=== PATIENT | male | born 1960 | race Caucasian/White ===

== ENCOUNTER 2016-03-02 09:53 | Inpatient (IN) | payer BC ==
[~2016-03-02] VITALS: Ht 182.9 cm; Wt 102.5 kg
[2016-03-02] VITALS (8 sets, daily range): BP systolic 108–152; BP diastolic 70–86; PULSE 103–129; RESP 18–20; TEMP 98.1–102.3; O2SAT 90–98
[~2016-03-02 09:53] MED LIST: FAMO40TA PO
[2016-03-02] MEDS ORDERED: FAMO40TA PO (10:23)
[2016-03-02] MEDS ORDERED: PIPERACIL-TAZO 4.5 GM PREMIX 100 ML IV STA (10:32)
[2016-03-02] MEDS ORDERED: SODIUM CHLOR 0.9% 1000 ML INJ 1,000 ML IV ONE ×3 (10:32)
--- NOTE | 2016-03-02 10:38 | PD ---
HPI Chief Complaint: Abdominal Pain Time Seen by Provider: 10:22 Travel History International Travel<30 days: No Contact w/Intl Traveler<30days: No Traveled to known affect area: No History of Present Illness HPI 55yo M with no significant PMH presents to the ED with c/o fever, abdominal pain , abdominal distension for 3 days. Last took acetaminophen at 9am. Pt had BM 3 days ago and it was hard. Denies any throat pain, rhinorrhea, chest pain, sob , cough, n/v, urinary complaints, weakness or numbness. Denies chronic alcohol use. Never had similar pain or abdominal surgery. PFSH Past Medical History High Cholesterol: Yes Diminished Hearing: No Gastrointestinal Disorders: Yes (GERD) GERD: Yes Hypertension: Yes Immunizations Current: No Past Surgical History Abdominal Surgery: Yes (LEFT AND RIGHT HERNIA REPAIR) AICD: No Joint Replacement: No Pacemaker: No Other Surgery: Yes (ROTATOR CUFF) Social History Alcohol Use: Yes (SOCIALLY) Tobacco Use: Yes (/2 PPD) Substance Use: No Allergies-Medications (Allergen,Severity, Reaction): Coded Allergies: No Known Allergies (Verified , 03/02/16) Reported Meds & Prescriptions Reported Meds & Active Scripts Active Reported Famotidine 40 Mg Tab 40 Mg PO DAILY Review of Systems Except as stated in HPI: all other systems reviewed are Neg Physical Exam Narrative GENERAL: 55yo M in moderate distress. SKIN: Warm and dry. HEAD: Atraumatic. Normocephalic. NECK: Trachea midline. No JVD. CARDIOVASCULAR: Tachycardic. RESPIRATORY: No accessory muscle use. Clear to auscultation. Breath sounds equal bilaterally. GASTROINTESTINAL: Abdomen soft, distended. +TTP epigastric, RUQ, RLQ. Mild guarding in epigastric region. No rebound tenderness. : No testicular ttp. No penile discharge or rash. No inguinal hernia palpated. MUSCULOSKELETAL: No obvious deformities. No clubbing. No cyanosis. No edema. NEUROLOGICAL: Awake and alert. No obvious cranial nerve deficits. Motor grossly within normal limits. Normal speech. PSYCHIATRIC: Appropriate mood and affect; insight and judgment normal. Data Data Last Documented VS Vital Signs Date Time Temp Pulse Resp B/P Pulse Ox O2 Delivery O2 Flow Rate FiO2 03/02/16 13:24 98.7 103 20 113/70 97 Nasal Cannula 2 Orders Electrocardiogram (03/02/16 10:32) Complete Blood Count With Diff (03/02/16 10:32) Prothrombin Time / Inr (Pt) (03/02/16 10:32) Act Partial Throm Time (Ptt) (03/02/16 10:32) Lactic Acid Sepsis Protocol (03/02/16 10:32) Lipase (03/02/16 10:32) Urinalysis - C+S If Indicated (03/02/16 10:32) Influenzae A/B Antigen (03/02/16 10:32) Blood Culture (03/02/16 10:32) Chest, Single Ap (03/02/16 10:32) Ecg Monitoring (03/02/16 10:32) Iv Access Insert/Monitor (03/02/16 10:32) Oximetry (03/02/16 10:32) Ibuprofen (Motrin) (03/02/16 10:45) Morphine Inj (Morphine Inj) (03/02/16 10:45) Ct Abd/Pel W Iv Contrast(Rout) (03/02/16 10:32) Piperacil-Tazo 4.5 Gm Premix (Zosyn 4.5 (03/02/16 10:32) Sodium Chlor 0.9% 1000 Ml Inj (Ns 1000 M (03/02/16 10:32) Sodium Chlor 0.9% 1000 Ml Inj (Ns 1000 M (03/02/16 10:32) Sodium Chlor 0.9% 1000 Ml Inj (Ns 1000 M (03/02/16 10:32) Basic Metabolic Panel (Bmp) (03/02/16 10:38) Hepatic Functional Panel (03/02/16 10:38) Potassium Chloride (Kcl) (03/02/16 12:00) Troponin I (03/02/16 12:30) Iohexol 350 Inj (Omnipaque 350 Inj) (03/02/16 12:44) Admit Order (Ed Use Only) (03/02/16 13:44) Labs Laboratory Tests Test 03/02/16 03/02/16 10:35 10:40 White Blood Count 10.1 TH/MM3 Red Blood Count 5.27 MIL/MM3 Hemoglobin 14.8 GM/DL Hematocrit 44.9 % Mean Corpuscular Volume 85.2 FL Mean Corpuscular Hemoglobin 28.0 PG Mean Corpuscular Hemoglobin 32.9 % Concent Red Cell Distribution Width 14.0 % Platelet Count 164 TH/MM3 Mean Platelet Volume 8.6 FL Neutrophils (%) (Auto) 89.0 % Lymphocytes (%) (Auto) 4.9 % Monocytes (%) (Auto) 5.2 % Eosinophils (%) (Auto) 0.1 % Basophils (%) (Auto) 0.8 % Neutrophils # (Auto) 9.0 TH/MM3 Lymphocytes # (Auto) 0.5 TH/MM3 Monocytes # (Auto) 0.5 TH/MM3 Eosinophils # (Auto) 0.0 TH/MM3 Basophils # (Auto) 0.1 TH/MM3 CBC Comment DIFF FINAL Differential Comment Prothrombin Time 11.3 SEC Prothromb Time International 1.0 RATIO Ratio Activated Partial 51.6 SEC Thromboplast Time Sodium Level 136 MEQ/L Potassium Level 3.0 MEQ/L Chloride Level 93 MEQ/L Carbon Dioxide Level 33.6 MEQ/L Anion Gap 9 MEQ/L Blood Urea Nitrogen 18 MG/DL Creatinine 1.30 MG/DL Estimat Glomerular Filtration 57 ML/MIN Rate Random Glucose 147 MG/DL Calcium Level 8.6 MG/DL Total Bilirubin 0.7 MG/DL Direct Bilirubin 0.2 MG/DL Indirect Bilirubin 0.5 MG/DL Aspartate Amino Transf 8 U/L (AST/SGOT) Alanine Aminotransferase 24 U/L (ALT/SGPT) Alkaline Phosphatase 76 U/L Troponin I 0.03 NG/ML Total Protein 7.0 GM/DL Albumin 2.9 GM/DL Lipase 44 U/L Lactic Acid Level 2.8 mmol/L MDM Medical Decision Making Medical Screen Exam Complete: Yes Emergency Medical Condition: Yes Interpretation(s) EKG: Sinus tachycardia at 120bpm. LAD. ST depression I. TWI aVL. Q waves III , aVF. Differential Diagnosis Acute cholangitis vs. pancreatitis vs. colitis Narrative Course 55yo M with abdominal pain, distension and fever for 3 days. Pt meets SIRS criteria with tachycardia of 129bpm and fever of 102.3F. Pt given ibuprofen for fever. Empirically treated with IV zosyn and NS IVF x3. Labs reviewed, no leukocytosis but 89% neutrophil. Lactic acid elevated at 2.8. K is low at 3.0 , orally replaced. PTT is elevated at 51.6sec. CXR showed minimal bibasilar air space disease. CXR showed under aerated lungs with minimal bibasilar air space disease. CTa/p showed diffuse thickening of stomach, cannot rule out infiltrating neoplastic process. Pt's abdominal pain improved with morphine. Discussed with Dr. Armendariz and accepted for admission for sepsis. Alie Raman DO Mar 02, 2016 10:38
[2016-03-02] MEDS ORDERED: IBUPROFEN 600 MG TAB PO ONE (10:45)
[2016-03-02] MEDS ORDERED: MORPHINE SULFATE 8 MG/ML INJ IV PUSH ONE (10:45)
[2016-03-02 10:56] LABS: BASOPHIL # 0.1 TH/MM3 (0-0.2); BASOPHIL % 0.8 % (0.0-2.0); EOSINOPHIL % 0.1 % (0.0-4.0); HEMATOCRIT 44.9 % (39.0-51.0); LYMPH % 4.9 % (9.0-44.0); LYMPHOCYTE # 0.5 TH/MM3 (1.0-4.8); MEAN CELL VOLUME 85.2 FL (80.0-100.0); MEAN CORPUSCULAR HGB CONC 32.9 % (32.0-36.0); MONO % 5.2 % (0.0-8.0); PLATELET COUNT 164 TH/MM3 (150-450); RED BLOOD COUNT 5.27 MIL/MM3 (4.50-5.90); WHITE BLOOD COUNT 10.1 TH/MM3 (4.0-11.0)
[2016-03-02 11:00] LABS: HEMO FLAGS DIFF FINAL
[2016-03-02 11:15] LABS: BICARBONATE 33.6 MEQ/L (21.0-32.0)
[2016-03-02 11:20] LABS: INDIRECT BILIRUBIN 0.5 MG/DL (0.0-0.8); TOTAL BILIRUBIN ADULT 0.7 MG/DL (0.2-1.0)
[2016-03-02 11:22] LABS: APTT (PATIENT) 51.6 SEC (24.3-30.1); PROTHROMBIN TIME - PATIENT 11.3 SEC (9.8-11.6)
--- NOTE | 2016-03-02 11:41 | RADHPO ---
EXAM DATE/TIME: 03/02/2016 11:06 [facility] COMPARISON: No previous studies available for comparison. INDICATIONS: Stomach pain, fever. MEDICAL HISTORY: None. SURGICAL HISTORY: None. ENCOUNTER: Initial ACUITY: 4 - 6 days PAIN SCORE: 3/10 LOCATION: Bilateral chest FINDINGS: The lungs are under aerated with minimal bibasilar air space disease evident worse on the right than the left. Heart and pulmonary vascularity are normal. Portion of bony skeleton visualized unremarka ble. CONCLUSION: Under aerate with minimal bibasilar air space disease. No significant findings in the right base. Peter Hinojosa MD FACR on March 02, 2016 at 11:26 Board Certified Radiologist. This report was verified electronically.
[2016-03-02] MEDS ORDERED: POTASSIUM CHLORIDE 20 MEQ CONTROLLED RELEASE TAB PO ONE (12:00)
[2016-03-02] MEDS ORDERED: IOHEXOL 350 MG/ML 10 ML VIAL (for RAD DIAG) IV ONE (12:44)
[2016-03-02 12:49] LABS: LACTIC ACID GHOST NOT REPORTABLE
--- NOTE | 2016-03-02 12:59 | RADHPO ---
EXAM DATE/TIME: 03/02/2016 12:32 [facility] COMPARISON: No previous studies available for comparison. INDICATIONS : Mid abdominal pain and distention. IV CONTRAST: 95 cc Omnipaque 350 (iohexol) IV ORAL CONTRAST: No oral contrast ingested. RADIATION DOSE: 21.60 CTDIvol (mGy) MEDICAL HISTORY : Hypercholesterolemia. Hypertension. Gastroesophageal reflux disease. SURGICAL HISTORY : Hernia repair. Orthopedic surgery. ENCOUNTER: Initial ACUITY: 3 days PAIN SCALE: 5/10 LOCATION: abdomen/pelvis TECHNIQUE: Volumetric scanning of the abdomen and pelvis was performed. Using automated exposure control and ad justment of the mA and/or kV according to patient size, radiation dose was kept as low as reasonably achievable to obtain optimal diagnostic quality images. FINDINGS: There are atelectatic changes in both lung bases. There is a small pericardial effusion. There is diffuse thickening of the stomach. There is no focal mass seen this would raise concern for possible gastritis. An infiltrating neoplastic process is not excluded. The appearance of the liver, spleen, pancreas, adrenal glands and left kidney is within normal limits . Examination of the right kidney demonstrates a 1.2 x 1.6 cm low-density lesion projecting off the l ower pole this is most compatible with a simple cyst. There is no free intraperitoneal air. No free intraperitoneal fluid is identified. There is no retrop eritoneal lymphadenopathy. The aorta is normal in caliber. The visualized loops of small and large bowel are unremarkable. No free air or free fluid is seen. There is no free fluid within the pelvis. No iliac or inguinal adenopathy is present. The visualized loops of small and large bowel within the pelvis are unremarkable. Note is made of a small left ingui nal hernia. The visualized bony structures demonstrate mild degenerative changes but are otherwise intact. CONCLUSION: 1. There appears to be diffuse thickening of the stomach there is no focal mass seen but this would r aise concern for possible gastritis. Followup to ensure this resolved would be warranted. An infiltra ting neoplastic process is not excluded. 2. No findings to indicate bowel obstruction identified. No free air free fluid is present. 3. Incidental 1.6 x 1.2 cm cyst projecting off of the right kidney. 4. Note is made of a small left inguinal hernia. 5. Note is made of a small pericardial effusion. Zane Hinojosa MD on March 02, 2016 at 12:53 Board Certified Radiologist. This report was verified electronically.
[2016-03-02 13:57] LABS: BLOOD, URINE TRACE (NEG); GLUCOSE,URINE NEG (NEG); KETONE, URINE NEG (NEG); NITRITE,URINE NEG (NEG); PH, URINE 6.5 (5.0-8.5)
[2016-03-02 14:11] LABS: COMMENT (UR) CULT NOT INDICATED; CULTURE IF INDICATED CULT NOT INDICATED; METHOD OF COLLECTION CLEAN CATCH; SQUAMOUS EPITHELIAL CELL URINE 0-5 /hpf (0-5); URINE COLOR YELLOW (YELLW/STRAW); WBC, URINE 0-2 /hpf (0-5)
[2016-03-02] MEDS ORDERED: ONDANSETRON HCL 4 MG/2 ML VIAL IV PUSH PRN (16:00)
[2016-03-02] MEDS: PANTOPRAZOLE SODIUM 40 MG VIAL IV PUSH SCH (17:00)
[2016-03-02] MEDS: DEXT 5%-NACL 0.45% 1000 ML INJ 1,000 ML IV SCH (17:00)
[2016-03-02] MEDS: PIPERACIL-TAZO 3.375 GM PREMIX 50 ML IV SCH ×2 (17:29→22:49)
[2016-03-02] MEDS: MORPHINE SULFATE 4 MG/ML INJ IV PUSH PRN (20:32)
[2016-03-03] VITALS (7 sets, daily range): BP systolic 136–185; BP diastolic 93–114; PULSE 98–117; RESP 18–20; TEMP 98.1–101.7; O2SAT 91–94
[2016-03-03] MEDS: MORPHINE SULFATE 4 MG/ML INJ IV PUSH PRN ×4 (04:24→17:15)
[2016-03-03] MEDS: PIPERACIL-TAZO 3.375 GM PREMIX 50 ML IV SCH ×4 (04:25→22:32)
--- NOTE | 2016-03-03 06:52 | HHI.PR ---
Subjective History of Present Illness Patient feel better abdominal pain better d/w AUSTIN Norris at bed side. no acute issue. Review of Systems GI/Abdomen GI/Abdominal Exam: Abdominal Pain Vitals/Results Intake & Output 03/02/16 03/02/16 03/03/16 15:00 23:00 07:00 Intake Total 0 ml 1000 ml Output Total 150 ml 325 ml Balance -150 ml 675 ml Intake Oral 0 ml 0 ml IV Total 1000 ml Output Urine Total 150 ml 325 ml # Voids 1 2 # Bowel Movements 0 Vital Signs Vital Signs Date Time Temp Pulse Resp B/P Pulse Ox O2 Delivery O2 Flow Rate FiO2 03/03/16 04:00 101.3 117 20 153/101 94 03/03/16 00:00 100.6 117 20 136/93 93 03/02/16 20:01 113 03/02/16 20:00 101.3 120 20 140/86 94 03/02/16 16:00 98.1 108 18 122/82 98 03/02/16 14:14 104 20 114/79 94 03/02/16 13:24 98.7 103 20 113/70 97 Nasal Cannula 2 03/02/16 12:08 99.0 114 20 108/74 98 Nasal Cannula 2 03/02/16 11:02 90 Room Air 03/02/16 11:02 101.4 119 20 149/75 94 Nasal Cannula 2 03/02/16 09:56 102.3 129 18 152/86 93 CBC/BMP: 03/02/16 1035 03/02/16 1035 Lab Results Laboratory Tests Test 03/02/16 03/02/16 03/02/16 03/02/16 10:35 10:40 13:25 13:40 White Blood Count 10.1 TH/MM3 Red Blood Count 5.27 MIL/MM3 Hemoglobin 14.8 GM/DL Hematocrit 44.9 % Mean Corpuscular Volume 85.2 FL Mean Corpuscular Hemoglobin 28.0 PG Mean Corpuscular Hemoglobin 32.9 % Concent Red Cell Distribution Width 14.0 % Platelet Count 164 TH/MM3 Mean Platelet Volume 8.6 FL Neutrophils (%) (Auto) 89.0 % Lymphocytes (%) (Auto) 4.9 % Monocytes (%) (Auto) 5.2 % Eosinophils (%) (Auto) 0.1 % Basophils (%) (Auto) 0.8 % Neutrophils # (Auto) 9.0 TH/MM3 Lymphocytes # (Auto) 0.5 TH/MM3 Monocytes # (Auto) 0.5 TH/MM3 Eosinophils # (Auto) 0.0 TH/MM3 Basophils # (Auto) 0.1 TH/MM3 CBC Comment DIFF FINAL Differential Comment Prothrombin Time 11.3 SEC Prothromb Time International 1.0 RATIO Ratio Activated Partial 51.6 SEC Thromboplast Time Sodium Level 136 MEQ/L Potassium Level 3.0 MEQ/L Chloride Level 93 MEQ/L Carbon Dioxide Level 33.6 MEQ/L Anion Gap 9 MEQ/L Blood Urea Nitrogen 18 MG/DL Creatinine 1.30 MG/DL Estimat Glomerular Filtration 57 ML/MIN Rate Random Glucose 147 MG/DL Calcium Level 8.6 MG/DL Total Bilirubin 0.7 MG/DL Direct Bilirubin 0.2 MG/DL Indirect Bilirubin 0.5 MG/DL Aspartate Amino Transf 8 U/L (AST/SGOT) Alanine Aminotransferase 24 U/L (ALT/SGPT) Alkaline Phosphatase 76 U/L Troponin I 0.03 NG/ML Total Protein 7.0 GM/DL Albumin 2.9 GM/DL Lipase 44 U/L Lactic Acid Level 2.8 mmol/L 1.7 mmol/L Urine Collection Type CLEAN CATCH Urine Color YELLOW Urine Turbidity CLEAR Urine pH 6.5 Urine Specific [place] 1.015 Urine Protein 30 mg/dL Urine Glucose (UA) NEG mg/dL Urine Ketones NEG mg/dL Urine Occult Blood TRACE Urine Nitrite NEG Urine Bilirubin NEG Urine Leukocyte Esterase NEG Urine RBC 4-9 /hpf Urine WBC 0-2 /hpf Urine Squamous Epithelial 0-5 /hpf Cells Microscopic Urinalysis Comment CULT NOT INDICATED Urine Collection Time 13:40 Microbiology Microbiology 03/02/16 Aerobic Blood Culture, Received Pending 03/02/16 Anaerobic Blood Culture, Received Pending 03/02/16 Aerobic Blood Culture, Received Pending 03/02/16 Anaerobic Blood Culture, Received Pending 03/02/16 Influenza Types A,B Antigen (JOANNE) - Final, Complete NEGATIVE FOR FLU A AND B ANTIGEN.... Physical Exam General General Appearance: Well Developed, Well Nourished, No Acute Distress, Comfortable Eyes Eye Exam: Pupils Equal, Pupils Reactive, Sclera White, Extraocular Movement Intact Throat Throat Exam: Oral Mucosa [place] & Moist, Oral Pharynx Normal Neck Neck Exam: Neck Supple, Trachea Midline Pulmonary Resp Exam: Clear Bilaterally, Breath Sounds Equal, No Distress Cardiology CV Exam: Regular, Normal Sinus Rhythm Gastrointestinal/Abdomen GI Exam: Soft, Bowel Sounds Present, Distended GI Remarks mild diffuse abdominal tenderness. Musculoskeletal MS Exam: Normal Tone Integumentary Skin Exam: Clear, Warm, Dry, Intact Extremeties Extremities Exam: No Edema Neurologic Neuro Exam: Alert, Awake, Oriented, Speech Clear, Moving All Extremities, No Focal Deficits VTE Prophylaxis VTE Prophylaxis Device: SCDs PUD Prophylasis PUD Prophylaxis: Protonix Assessment/Plan Assessment/Plan ASSESSMENT/PLAN 1. This is a 55-year male who came to the ER diagnosed with abdominal pain and abdominal distension most likely secondary to constipation. The patient's CT abdomen does not show anything acute except most likely gastritis. GI consulted. The patient is on Protonix 40 mg p.o. daily and also Pepcid 40 mg p.o. daily. 2. History of hyperlipidemia. 3. History of gastroesophageal reflux disease. 4. History of hypertension. 5. DVT prophylaxis with SCD's. 6. GI prophylaxis Protonix 40 mg daily. 7. Hypokalemia. We will replace potassium per protocol. 8. Possible pneumonia on the chest x-ray. The patient is on antibiotics. Check CBC with diff CMP in AM. We are going to manage the patient on a daily basis and make recommendation on a daily basis. Discussed Condition with: Patient Vicente Ryder MD Mar 03, 2016 06:52
[2016-03-03] MEDS ORDERED: cloNIDine HCL 0.1 MG TAB PO PRN (07:00)
[2016-03-03] MEDS: cloNIDine HCL 0.1 MG TAB PO PRN (08:06)
[2016-03-03] MEDS: FAMOTIDINE 20 MG TAB PO SCH (08:07)
[2016-03-03] MEDS: ACETAMINOPHEN 500 MG CPLT PO PRN (09:03)
[2016-03-03 09:18] LABS: AUTOMATED NEUTROPHIL # 8.1 TH/MM3 (1.8-7.7); BASOPHIL % 0.4 % (0.0-2.0); EOSINOPHIL # 0.1 TH/MM3 (0-0.4); HEMATOCRIT 38.2 % (39.0-51.0); LYMPH % 6.3 % (9.0-44.0); LYMPHOCYTE # 0.6 TH/MM3 (1.0-4.8); MEAN CELL VOLUME 82.9 FL (80.0-100.0); MEAN CORPUSCULAR HEMOGLOBIN 28.1 PG (27.0-34.0); MEAN CORPUSCULAR HGB CONC 33.9 % (32.0-36.0); MONO % 4.1 % (0.0-8.0); NEUT % 88.2 % (16.0-70.0); PLATELET COUNT 142 TH/MM3 (150-450); RED BLOOD COUNT 4.61 MIL/MM3 (4.50-5.90); RED CELL DISTRIBUTION WIDTH 14.1 % (11.6-17.2); WHITE BLOOD COUNT 9.2 TH/MM3 (4.0-11.0)
[2016-03-03 09:21] LABS: HEMO FLAGS DIFF FINAL
[2016-03-03 09:52] LABS: AST (GOT) 9 U/L (15-37)
[2016-03-03 09:53] LABS: GLOMERULAR FILTRATION RATE 77 ML/MIN (>89)
[2016-03-03 09:54] LABS: TOTAL BILIRUBIN ADULT 0.7 MG/DL (0.2-1.0)
[2016-03-03 09:55] LABS: ALKALINE PHOSPHATASE 86 U/L (45-117)
[2016-03-03 09:56] LABS: ANION GAP 7 MEQ/L (5-15); CHLORIDE 99 MEQ/L (98-107); POTASSIUM 3.4 MEQ/L (3.5-5.1); SODIUM (NA) 138 MEQ/L (136-145)
[2016-03-03 10:08] LABS: ALT (GPT) 19 U/L (12-78); BLOOD UREA NITROGEN 17 MG/DL (7-18)
--- NOTE | 2016-03-03 11:01 | MH ---
cc: VICENTE EATON MD DATE OF ADMISSION 03/02/2016 CHIEF COMPLAINT Abdominal pain. HISTORY OF PRESENT ILLNESS This is a 55-year male with past medical and surgical history significant for hyperlipidemia, gastroesophageal reflux disease, hypertension, left and right inguinal hernia repair, bilateral rotator cuff surgery of the shoulder who came to the ER at [facility] complaining of abdominal pain, abdominal distension, and having constipation for the last three days and last bowel movement was three days ago. He is complaining of abdominal pain which is about a 5/10, cramping and denies any nausea or vomiting. Denies any fever or chills. Denies any chest pain, shortness of breath. Denies any urinary complaint, any neurological complaint or any other complaint. Other than that, nothing significant. PAST MEDICAL/SURGICAL HISTORY As dictated above. SOCIAL HISTORY He smokes one-half pack a day many years ago, but he said he quit five years ago. Drinks socially. Denies any drug use. Lives at home with . 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 ALLERGIES NO KNOWN DRUG ALLERGIES. MEDICATIONS Includes Famotidine 40 mg p.o. daily. REVIEW OF SYSTEMS Positive for abdominal pain, abdominal distension and constipation. All other review of systems are negative. PHYSICAL EXAMINATION This is a 55-year male laying in the bed not in acute distress. VITAL SIGNS: Temperature 101.3, heart rate 117, respiratory rate 20, blood pressure 163/114, O2 saturation 94% room air. HEENT: Normocephalic, atraumatic. EOMI. PERRLA. Oral mucosa moist. NECK: Supple. No visible thyromegaly or neck mass. Trachea central. CARDIOVASCULAR: Regular rate and rhythm. RESPIRATORY: Respirations clear to auscultation bilaterally. ABDOMEN: Distended, mild diffuse tenderness throughout. Bowel sounds. EXTREMITIES: No cyanosis or clubbing. Full range of motion of all extremities. NEUROLOGIC: Awake, alert, and oriented x4. No focal deficits. SKIN: Warm and dry. PSYCH: The patient is cooperative. Mood and affect is normal. LABORATORY DATA Includes a CBC totally unremarkable except for neutrophil 89.0, lymphs 4.9 low. BMP totally unremarkable except for potassium 3.0 low, chloride 93 low, carbon dioxide 33.6 high, GFR 57 low, glucose 147, lactic acid was 2.8 now it is 1.7. LFTs are normal. Lipase 44 low, albumin for 2.9 low, troponin-I 0.03. PT 11.3, INR 1.0, APTT 51.6. Urine examination showed trace of occult blood, 4-9 RBC's. Blood cultures x2 done negative so far. Influenza A and B negative. Chest x-ray Was done shows under aerated with minimal basilar and airspace disease. No significant finding in the right base. CT abdomen and pelvis was done shows there appeared to be diffuse thickening of the stomach and there is no focal mass seen, but would raise a concern of possible gastritis. Follow up to ensure this result would be warranted and infiltrating new plastic process is not excluded. No finding indicated. Bowel obstruction identified. No free air, free fluid is present. Incidental 1.16-1.2 cm cyst projecting off the right kidney. Small left inguinal hernia, pericardial effusion. ASSESSMENT/PLAN 1. This is a 55-year male who came to the ER diagnosed with abdominal pain and abdominal distension most likely secondary to constipation. The patient's CT abdomen does not show anything acute except most likely gastritis. GI consulted. The patient is on Protonix 40 mg p.o. daily and also Pepcid 40 mg p.o. daily. 2. History of hyperlipidemia. 3. History of gastroesophageal reflux disease. 4. History of hypertension. 5. DVT prophylaxis with SCD's. 6. GI prophylaxis Protonix 40 mg daily. We are going to manage the patient on a daily basis and make recommendation on a daily basis. 7. Hypokalemia. We will replace potassium per protocol. 8. Possible pneumonia on the chest x-ray. The patient is on antibiotics. We are going to manage the patient on a daily basis and make recommendation on a daily basis. Vicente Eaton MD EA/DEVON /6:46 AM /10:41 AM
[2016-03-03] MEDS ORDERED: POTASSIUM CHLORIDE 10 MEQ CONTROLLED RELEASE TAB PO ONE (12:15)
[2016-03-03] MEDS: DEXT 5%-NACL 0.45% 1000 ML INJ 1,000 ML IV SCH ×4 (12:19→23:23)
[2016-03-03] MEDS ORDERED: PEG (High)/E-LYTE SOLN 4000 ML BTL PO ONE (16:15)
--- NOTE | 2016-03-03 17:11 | MB ---
cc: RADHA PALAFOX M.D., EJAZ MD FARMER, DANNY M. M.D. DATE OF CONSULTATION 03/03/[address] Vicente Ryder. REASON FOR CONSULTATION Abdominal pain, abdominal distension, abnormal CT scan and constipation. HISTORY OF PRESENT ILLNESS Mr. Landrum is a 55-year-old gentleman who had sudden onset of severe abdominal pain and distension. He said he had some fevers. Initially he thought he had the flu, but because of bowel distension and constipation he came to the hospital. A CT scan at admission revealed gastric distension. This has prompted GI consultation. He states he is passing gas but still feels very distended and bloated. He has not had a bowel movement. He is tolerating a clear liquid diet. PAST MEDICAL HISTORY 1. Hyperlipidemia 2. Chronic reflux disease, 3. Hypertension. PAST SURGICAL HISTORY 1. Inguinal hernia surgery 2. Rotator cuff surgery. SOCIAL HISTORY The patient used to be a smoker, but he quit about five years ago. Occasional alcohol. ALLERGIES None documented MEDICATIONS On admission Famotidine. REVIEW OF SYSTEMS Abdominal distension, constipation, no nausea, vomiting, no hematemesis reported. PHYSICAL EXAMINATION GENERAL: A well-nourished man in no apparent distress. VITAL SIGNS: Stable. HEAD/NECK: Anicteric sclerae. CHEST: Bilateral air entry with rales. ABDOMEN: Distended, somewhat firm. Bowel sounds are present. ARCHITECTURAL INSPECTOR: Exam is nonfocal. RECTAL: Exam deferred at this time. LABORATORY DATA Creatinine of one. Liver functions are normal. Lipase is normal. White cell count 9.2, hemoglobin 13.0. IMAGING STUDIES CT abdomen and pelvis reveals diffuse thickening of the stomach. No findings to indicate bowel obstruction, left inguinal hernia, small pericardial effusion IMPRESSION Gastritis, need to rule out gastric malignancy. RECOMMENDATIONS EGD, colonoscopy discussed with the patient. He is agreeable to proceed. This will be scheduled for tomorrow and GoLYTELY prep has been ordered. If he cannot do the prep, we will proceed with endoscopy alone tomorrow. We will follow with you. Thank you for this referral. MD ALEXY Ramos/ /4:14 PM /5:02 PM
[2016-03-03] MEDS: PANTOPRAZOLE SODIUM 40 MG VIAL IV PUSH SCH (17:15)
--- NOTE | 2016-03-03 18:55 | EKG ---
Date Performed: 03/02/2016 Time Performed: 10:52:18 PTAGE: 55 years EKG: Sinus tachycardia Leftward axis Left ventricular hypertrophy Inferior/lateral ST-T changes may be due to hypertrophy and/or Ischemia When compared to previous tracing, the patient is now tachy cardic. Abnormal ECG PREVIOUS TRACING : 11/18/2015 09.05 DOCTOR: Radha Estrella Interpretating Date/Time 03/03/2016 18:54:48
[2016-03-04] VITALS (7 sets, daily range): BP systolic 136–188; BP diastolic 72–115; PULSE 68–107; RESP 15–20; TEMP 95.2–100.4; O2SAT 91–98
[2016-03-04] MEDS: cloNIDine HCL 0.1 MG TAB PO PRN (00:16)
[2016-03-04] MEDS: PIPERACIL-TAZO 3.375 GM PREMIX 50 ML IV SCH ×4 (04:00→23:03)
[2016-03-04] MEDS: ENALAPRILAT 1.25 MG/ML VIAL IV PUSH PRN ×2 (04:00→12:45)
[2016-03-04] MEDS: ACETAMINOPHEN 500 MG CPLT PO PRN (04:01)
[2016-03-04 06:32] LABS: AUTOMATED NEUTROPHIL # 9.1 TH/MM3 (1.8-7.7); BASOPHIL % 0.2 % (0.0-2.0); EOSINOPHIL # 0.3 TH/MM3 (0-0.4); EOSINOPHIL % 2.2 % (0.0-4.0); HEMATOCRIT 38.6 % (39.0-51.0); LYMPH % 9.6 % (9.0-44.0); LYMPHOCYTE # 1.1 TH/MM3 (1.0-4.8); MEAN CELL VOLUME 83.4 FL (80.0-100.0); MEAN CORPUSCULAR HEMOGLOBIN 27.7 PG (27.0-34.0); MEAN CORPUSCULAR HGB CONC 33.2 % (32.0-36.0); MONO % 7.8 % (0.0-8.0); NEUT % 80.2 % (16.0-70.0); PLATELET COUNT 187 TH/MM3 (150-450); RED BLOOD COUNT 4.63 MIL/MM3 (4.50-5.90); RED CELL DISTRIBUTION WIDTH 14.2 % (11.6-17.2); WHITE BLOOD COUNT 11.4 TH/MM3 (4.0-11.0)
[2016-03-04 06:33] LABS: HEMO FLAGS DIFF FINAL
[2016-03-04 06:42] LABS: CHLORIDE 101 MEQ/L (98-107); POTASSIUM 3.7 MEQ/L (3.5-5.1); SODIUM (NA) 139 MEQ/L (136-145)
[2016-03-04 06:47] LABS: ANION GAP 7 MEQ/L (5-15); BICARBONATE 30.6 MEQ/L (21.0-32.0); BLOOD UREA NITROGEN 13 MG/DL (7-18)
[2016-03-04 06:50] LABS: ALT (GPT) 36 U/L (12-78)
[2016-03-04 06:52] LABS: AST (GOT) 29 U/L (15-37); GLOMERULAR FILTRATION RATE 87 ML/MIN (>89); TOTAL BILIRUBIN ADULT 0.9 MG/DL (0.2-1.0)
[2016-03-04 07:02] LABS: ALKALINE PHOSPHATASE 101 U/L (45-117)
[2016-03-04] MEDS: DEXT 5%-NACL 0.45% 1000 ML INJ 1,000 ML IV SCH ×2 (08:00→16:00)
--- NOTE | 2016-03-04 08:42 | HHI.PR ---
Subjective History of Present Illness Patient feel better abdominal pain better d/w AUSTIN Johnson getting endoscopy today no acute issue. d/w Patient and at bed side fully satisfied with care provided by me. Review of Systems GI/Abdomen GI/Abdominal Exam: Abdominal Pain Vitals/Results Intake & Output 03/03/16 03/03/16 03/04/16 15:00 23:00 07:00 Intake Total 300 ml 1000 ml 480 ml Output Total 350 ml Balance 300 ml 1000 ml 130 ml Intake Oral 300 ml 480 ml IV Total 1000 ml Output Urine Total 350 ml # Voids 2 # Bowel Movements 0 Vital Signs Vital Signs Date Time Temp Pulse Resp B/P Pulse Ox O2 Delivery O2 Flow Rate FiO2 03/04/16 08:20 99.4 97 16 156/108 95 03/04/16 04:00 100.4 102 18 169/111 93 03/04/16 00:00 99.3 107 18 188/115 91 03/03/16 20:00 101.6 110 18 185/113 91 03/03/16 20:00 105 03/03/16 17:20 18 03/03/16 16:00 99.7 106 20 163/100 93 03/03/16 12:00 98.1 98 20 144/98 93 03/03/16 10:03 18 CBC/BMP: 03/04/16 0610 03/04/16 0610 Lab Results Laboratory Tests Test 03/03/16 03/04/16 09:00 06:10 White Blood Count 9.2 TH/MM3 11.4 TH/MM3 Red Blood Count 4.61 MIL/MM3 4.63 MIL/MM3 Hemoglobin 13.0 GM/DL 12.8 GM/DL Hematocrit 38.2 % 38.6 % Mean Corpuscular Volume 82.9 FL 83.4 FL Mean Corpuscular Hemoglobin 28.1 PG 27.7 PG Mean Corpuscular Hemoglobin 33.9 % 33.2 % Concent Red Cell Distribution Width 14.1 % 14.2 % Platelet Count 142 TH/MM3 187 TH/MM3 Mean Platelet Volume 8.7 FL 8.8 FL Neutrophils (%) (Auto) 88.2 % 80.2 % Lymphocytes (%) (Auto) 6.3 % 9.6 % Monocytes (%) (Auto) 4.1 % 7.8 % Eosinophils (%) (Auto) 1.0 % 2.2 % Basophils (%) (Auto) 0.4 % 0.2 % Neutrophils # (Auto) 8.1 TH/MM3 9.1 TH/MM3 Lymphocytes # (Auto) 0.6 TH/MM3 1.1 TH/MM3 Monocytes # (Auto) 0.4 TH/MM3 0.9 TH/MM3 Eosinophils # (Auto) 0.1 TH/MM3 0.3 TH/MM3 Basophils # (Auto) 0.0 TH/MM3 0.0 TH/MM3 CBC Comment DIFF FINAL DIFF FINAL Differential Comment Sodium Level 138 MEQ/L 139 MEQ/L Potassium Level 3.4 MEQ/L 3.7 MEQ/L Chloride Level 99 MEQ/L 101 MEQ/L Carbon Dioxide Level 32.0 MEQ/L 30.6 MEQ/L Anion Gap 7 MEQ/L 7 MEQ/L Blood Urea Nitrogen 17 MG/DL 13 MG/DL Creatinine 1.00 MG/DL 0.90 MG/DL Estimat Glomerular Filtration 77 ML/MIN 87 ML/MIN Rate Random Glucose 117 MG/DL 115 MG/DL Calcium Level 8.4 MG/DL 8.8 MG/DL Total Bilirubin 0.7 MG/DL 0.9 MG/DL Aspartate Amino Transf 9 U/L 29 U/L (AST/SGOT) Alanine Aminotransferase 19 U/L 36 U/L (ALT/SGPT) Alkaline Phosphatase 86 U/L 101 U/L Total Protein 6.6 GM/DL 7.0 GM/DL Albumin 2.6 GM/DL 2.5 GM/DL Physical Exam General General Appearance: Well Developed, Well Nourished, No Acute Distress, Comfortable Eyes Eye Exam: Pupils Equal, Pupils Reactive, Sclera White, Extraocular Movement Intact Throat Throat Exam: Oral Mucosa [place] & Moist, Oral Pharynx Normal Neck Neck Exam: Neck Supple, Trachea Midline Pulmonary Resp Exam: Clear Bilaterally, Breath Sounds Equal, No Distress Cardiology CV Exam: Regular, Normal Sinus Rhythm Gastrointestinal/Abdomen GI Exam: Soft, Bowel Sounds Present, Distended GI Remarks mild diffuse abdominal tenderness. Musculoskeletal MS Exam: Normal Tone Integumentary Skin Exam: Clear, Warm, Dry, Intact Extremeties Extremities Exam: No Edema Neurologic Neuro Exam: Alert, Awake, Oriented, Speech Clear, Moving All Extremities, No Focal Deficits VTE Prophylaxis VTE Prophylaxis Device: SCDs PUD Prophylasis PUD Prophylaxis: Protonix Assessment/Plan Assessment/Plan ASSESSMENT/PLAN 1. This is a 55-year male who came to the ER diagnosed with abdominal pain and abdominal distension unknown cause... The patient's CT abdomen does not show anything acute except most likely gastritis. GI input noted...getting endoscopy.. The patient is on Protonix 40 mg p.o. daily and also Pepcid 40 mg p.o. daily. 2. History of hyperlipidemia. 3. History of gastroesophageal reflux disease. 4. History of hypertension. 5. DVT prophylaxis with SCD's. 6. GI prophylaxis Protonix 40 mg daily. 7. Hypokalemia. resolved. 8. Possible pneumonia on the chest x-ray. The patient is on antibiotics. Check CBC with diff CMP in AM. We are going to manage the patient on a daily basis and make recommendation on a daily basis. Discussed Condition with: Patient Vicente Ryder MD Mar 04, 2016 08:42
[2016-03-04] MEDS: FAMOTIDINE 20 MG TAB PO SCH ×2 (09:00→20:25)
[2016-03-04] MEDS: ACETAMINOPHEN 325 MG TAB PO PRN ×2 (12:44→23:06)
[2016-03-04] MEDS ORDERED: PROPOFOL 200 MG/20 ML AMP IV ONE (16:30)
[2016-03-04] MEDS: PANTOPRAZOLE SODIUM 40 MG VIAL IV PUSH SCH (18:00)
[2016-03-04] MEDS ORDERED: DO NOT ADM ANY ANTICOAGULANT DRUGS XX PRN (19:15)
[2016-03-05 00:46] VITALS: BP 159/95; PULSE 94; RESP 20; TEMP 99.9; O2SAT 95
[2016-03-05 06:26] LABS: AUTOMATED NEUTROPHIL # 6.5 TH/MM3 (1.8-7.7); BASOPHIL % 0.1 % (0.0-2.0); EOSINOPHIL # 0.2 TH/MM3 (0-0.4); EOSINOPHIL % 2.4 % (0.0-4.0); HEMATOCRIT 38.2 % (39.0-51.0); LYMPH % 13.6 % (9.0-44.0); LYMPHOCYTE # 1.2 TH/MM3 (1.0-4.8); MEAN CELL VOLUME 84.2 FL (80.0-100.0); MEAN CORPUSCULAR HEMOGLOBIN 28.5 PG (27.0-34.0); MEAN CORPUSCULAR HGB CONC 33.8 % (32.0-36.0); MONO % 7.6 % (0.0-8.0); NEUT % 76.3 % (16.0-70.0); PLATELET COUNT 202 TH/MM3 (150-450); RED BLOOD COUNT 4.53 MIL/MM3 (4.50-5.90); RED CELL DISTRIBUTION WIDTH 14.2 % (11.6-17.2); WHITE BLOOD COUNT 8.5 TH/MM3 (4.0-11.0)
[2016-03-05] MEDS: PIPERACIL-TAZO 3.375 GM PREMIX 50 ML IV SCH (06:27)
[2016-03-05] MEDS: DEXT 5%-NACL 0.45% 1000 ML INJ 1,000 ML IV SCH (06:27)
[2016-03-05 06:28] LABS: HEMO FLAGS DIFF FINAL
[2016-03-05] MEDS: ACETAMINOPHEN 325 MG TAB PO PRN (06:30)
[2016-03-05 06:34] LABS: CHLORIDE 103 MEQ/L (98-107); POTASSIUM 3.3 MEQ/L (3.5-5.1); SODIUM (NA) 141 MEQ/L (136-145)
[2016-03-05 06:39] LABS: ANION GAP 8 MEQ/L (5-15); BICARBONATE 29.8 MEQ/L (21.0-32.0); BLOOD UREA NITROGEN 10 MG/DL (7-18)
[2016-03-05 06:42] LABS: ALT (GPT) 64 U/L (12-78); AST (GOT) 43 U/L (15-37); GLOMERULAR FILTRATION RATE 108 ML/MIN (>89)
[2016-03-05 06:44] LABS: TOTAL BILIRUBIN ADULT 0.6 MG/DL (0.2-1.0)
[2016-03-05 06:45] LABS: ALKALINE PHOSPHATASE 119 U/L (45-117)
[2016-03-05 07:30] VITALS: RESP 20
--- NOTE | 2016-03-05 08:19 | HHI.PR ---
Subjective History of Present Illness Patient feel better abdominal pain better s/p endoscopy report pending no acute issue. wants regular diet and wants to go home...d/w Dr Cool ( GI) ok to start solid food and if tolerate ok to dc home today.. d/w Patient and RN Essence at bed side fully satisfied with care provided by me. Review of Systems GI/Abdomen GI/Abdominal Exam: Abdominal Pain Vitals/Results Intake & Output 03/04/16 03/04/16 03/05/16 15:00 23:00 07:00 Intake Total 1440 ml Output Total 30 ml Balance 1410 ml Intake Oral 240 ml IV Total 1200 ml Output Urine Total 30 ml # Voids 4 1 # Bowel Movements 0 Vital Signs Vital Signs Date Time Temp Pulse Resp B/P Pulse Ox O2 Delivery O2 Flow Rate FiO2 03/05/16 00:46 99.9 94 20 159/95 95 03/05/16 00:21 18 03/04/16 20:00 95.2 68 18 136/72 98 03/04/16 18:15 91 14 157/96 95 Room Air 03/04/16 18:00 90 21 141/85 95 Room Air 03/04/16 17:45 100.1 87 21 140/72 92 03/04/16 16:05 98.4 91 20 172/101 96 03/04/16 16:00 100.2 105 15 166/104 95 03/04/16 13:10 100.2 105 15 166/104 95 03/04/16 08:20 99.4 97 16 156/108 95 CBC/BMP: 03/05/16 0542 03/05/16 0542 Lab Results Laboratory Tests Test 03/05/16 05:42 White Blood Count 8.5 TH/MM3 Red Blood Count 4.53 MIL/MM3 Hemoglobin 12.9 GM/DL Hematocrit 38.2 % Mean Corpuscular Volume 84.2 FL Mean Corpuscular Hemoglobin 28.5 PG Mean Corpuscular Hemoglobin 33.8 % Concent Red Cell Distribution Width 14.2 % Platelet Count 202 TH/MM3 Mean Platelet Volume 8.9 FL Neutrophils (%) (Auto) 76.3 % Lymphocytes (%) (Auto) 13.6 % Monocytes (%) (Auto) 7.6 % Eosinophils (%) (Auto) 2.4 % Basophils (%) (Auto) 0.1 % Neutrophils # (Auto) 6.5 TH/MM3 Lymphocytes # (Auto) 1.2 TH/MM3 Monocytes # (Auto) 0.6 TH/MM3 Eosinophils # (Auto) 0.2 TH/MM3 Basophils # (Auto) 0.0 TH/MM3 CBC Comment DIFF FINAL Differential Comment Sodium Level 141 MEQ/L Potassium Level 3.3 MEQ/L Chloride Level 103 MEQ/L Carbon Dioxide Level 29.8 MEQ/L Anion Gap 8 MEQ/L Blood Urea Nitrogen 10 MG/DL Creatinine 0.75 MG/DL Estimat Glomerular Filtration 108 ML/MIN Rate Random Glucose 105 MG/DL Calcium Level 8.4 MG/DL Total Bilirubin 0.6 MG/DL Aspartate Amino Transf 43 U/L (AST/SGOT) Alanine Aminotransferase 64 U/L (ALT/SGPT) Alkaline Phosphatase 119 U/L Total Protein 6.6 GM/DL Albumin 2.4 GM/DL Physical Exam General General Appearance: Well Developed, Well Nourished, No Acute Distress, Comfortable Eyes Eye Exam: Pupils Equal, Pupils Reactive, Sclera White, Extraocular Movement Intact Throat Throat Exam: Oral Mucosa [place] & Moist, Oral Pharynx Normal Neck Neck Exam: Neck Supple, Trachea Midline Pulmonary Resp Exam: Clear Bilaterally, Breath Sounds Equal, No Distress Cardiology CV Exam: Regular, Normal Sinus Rhythm Gastrointestinal/Abdomen GI Exam: Soft, Bowel Sounds Present, Distended GI Remarks mild diffuse abdominal tenderness. Musculoskeletal MS Exam: Normal Tone Integumentary Skin Exam: Clear, Warm, Dry, Intact Extremeties Extremities Exam: No Edema Neurologic Neuro Exam: Alert, Awake, Oriented, Speech Clear, Moving All Extremities, No Focal Deficits VTE Prophylaxis VTE Prophylaxis Device: SCDs PUD Prophylasis PUD Prophylaxis: Protonix Assessment/Plan Assessment/Plan ASSESSMENT/PLAN 1. This is a 55-year male who came to the ER diagnosed with abdominal pain and abdominal distension unknown cause... The patient's CT abdomen does not show anything acute except most likely gastritis. GI input noted...s/p endoscopy. d/w Dr Cool ok to start solid food and if tolerate ok to dc home today. The patient is on Protonix 40 mg p.o. daily and also Pepcid 40 mg p.o. daily. 2. History of hyperlipidemia. 3. History of gastroesophageal reflux disease. 4. History of hypertension. 5. DVT prophylaxis with SCD's. 6. GI prophylaxis Protonix 40 mg daily. 7. Hypokalemia. resolved. 8. Possible pneumonia on the chest x-ray. The patient is on antibiotics. Check CBC with diff CMP in AM. We are going to manage the patient on a daily basis and make recommendation on a daily basis. Discussed Condition with: Patient Vicente Ryder MD Mar 05, 2016 08:19
--- NOTE | 2016-03-05 08:21 | PQ ---
Physician Query Response Document PATIENT: BELTRAN SMITH : 1960 ADMIT DATE: 03/02/2016 1:45 PM DISCH DATE: RESPONDING PROVIDER #: EAhmed QUERY TEXT: Sepsis Query Based on your medical judgement, can you further clarify the folowiin. Sepsis (SIRS due to an infection) 2. Sepsis with Organ Dysfunction 3. A localized Infection only 4. Another condition - please specify 5. Unable to determine - please explain. Depending on your selection above, please indicate one of the below if applicable: - Sepsis was present on Admission - Sepsis developed after admission The patient's Clinical Indicators include: T 102.3 HR 129, ABD PAIN X 3 DAYS BIBASILAR AIR SPACE DISEASE SM PERICARDIAL EFFUSION LACTIC ACID > 2 Query created by: Magdalena Greer on 03/03/2016 12:51 PM RESPONSE TEXT: Sepsis due to infection. Electronically signed by: Vicente Ryder MD 03/05/2016 8:17 AM
[2016-03-05] MEDS ORDERED: FLUCONAZOLE 100 MG TAB PO SCH (09:00)
[2016-03-05] MEDS ORDERED: POTASSIUM CHLORIDE 10 MEQ CONTROLLED RELEASE TAB PO ONE (09:00)
[2016-03-05] MEDS: FAMOTIDINE 20 MG TAB PO SCH (09:12)
[2016-03-05] MEDS: ACETAMINOPHEN 500 MG CPLT PO PRN (09:13)
[2016-03-05] MEDS ORDERED: AUGM875T PO (09:57)
[2016-03-05] MEDS ORDERED: PANT40TA3 PO (10:00)
[2016-03-05] MEDS ORDERED: DIFL100T PO (10:09)
--- NOTE | 2016-03-12 09:51 | MD ---
cc: VICENTE EATON MD ADMISSION DATE: 03/02/2016 DISCHARGE DATE: 03/05/2016 Okay to discharge the patient home. CONDITION AT THE TIME OF DISCHARGE Satisfactory ACTIVITY As tolerated. DIET Cardiac diet ALLERGIES NO KNOWN DRUG ALLERGIES. DISCHARGE MEDICATIONS Include: 1. Augmentin 875 mg p.o. b.i.d. for 10 days. 2. Protonix 40 mg p.o. daily FOLLOW UP The patient was to follow with PCP and GI in one week. ADMITTING DIAGNOSIS 1. Abdominal pain and abdominal distension, exact etiology not known. CT abdomen does not show anything acute except most likely gastritis and the patient had endoscopy done. The patient seen by GI and biopsy was taken. The patient advised to follow up with Dr. Esposito in a week. 2. History of hyperlipidemia. 3. History of gastroesophageal reflux disease. 4. History of hypertension. 5. Hypokalemia during hospital stay which resolved. 6. Possible pneumonia on chest x-ray. 7. Possible sepsis. The patient is on antibiotic. HOSPITAL COURSE This is a 55-year-old male who came to [facility] with abdominal pain and distension. not known most likely gastritis. The patient had a concern of lymphoma. The patient advised to follow with GI Dr. Esposito as an outpatient. The patient remained stable. No acute event happened. The patient had mild hypokalemia during hospital stay. The patient fully satisfied with the care provided. Further details in the medical record. Vicente Eaton MD EA/DEVON /10:03 AM /9:43 AM
== END 2016-03-05 12:38 | disposition home or self-care (01) | DRG 871 ==
LOC: PHED 09:53 → PHEDA 13:45 → PH3A 15:17
PROVIDERS: ADMIT Specialist; ATTEND Specialist
PROC: 0DB98ZX Excision of Duodenum, Via Natural or Artificial Opening Endoscopic, Diagnostic (ICD-10-PCS; principal; 2016-03-04 17:00)
PROC: 0DB68ZX Excision of Stomach, Via Natural or Artificial Opening Endoscopic, Diagnostic (ICD-10-PCS; 2016-03-04 17:00)
DX: A41.9 Sepsis, unspecified organism (principal); J18.9 Pneumonia, unspecified organism; I10 Essential (primary) hypertension; K59.00 Constipation, unspecified; R14.0 Abdominal distension (gaseous); E78.5 Hyperlipidemia, unspecified; K21.0 Gastro-esophageal reflux disease with esophagitis; K29.50 Unspecified chronic gastritis without bleeding; E87.6 Hypokalemia; Z87.891 Personal history of nicotine dependence
CPT/HCPCS: 71010; 74177; 80048; 80053; 80076; 81001; 83605; 83690; 84484; 85025; 85610; 85730; 87040; 87804; 88305; 88312; 93005; 96360; 96361; 96365; 96375; C9113; J2270; J2543; J7030; Q9967